=== PATIENT | female | born 2000 | race Caucasian/White ===

== ENCOUNTER 2023-04-30 18:36 | Emergency (ER) | payer BC ==
[~2023-04-30] VITALS: Ht 175.3 cm; Wt 68.0 kg
[2023-04-30 18:44] VITALS: BP_SYST 130
--- NOTE | 2023-04-30 18:51 | NUR ---
Pt brought by self, ambulatory, A&Ox4, pt presents to ER with headache and nausea after hiting her head with a treeranch yesterday, no KO, skin pink and warm, cap refill <3, VSS
[2023-04-30] MEDS ORDERED: ACETAMINOPHEN 500 MG TABLET PO ONE (20:15)
[2023-04-30] MEDS ORDERED: ONDANSETRON 4 MG ODT TAB PO ONE (20:15)
[2023-04-30] MEDS ORDERED: BUTA1CAP43 PO (20:55)
--- NOTE | 2023-04-30 21:50 | NUR ---
MEDICATION GIVEN AT THIS TIME
--- NOTE | 2023-04-30 21:53 | NUR ---
Patient given written and verbal discharge instructions and verbalizes understanding. ER MD discussed with patient the results and treatment provided. Patient in stable condition. ID arm band removed. Rx of given. Patient educated on pain management and to follow up with PMD. Pain Scale 5/10 MIGRAINE. Opportunity for questions provided and answered. Medication side effect fact sheet provided. PATIENT NOTED WALKING WITH STABLE GAIT TO PRIVATE CAR
[2023-04-30 21:55] VITALS: BP_SYST 127
== END 2023-04-30 18:51 | disposition home or self-care (01) ==
LOC: SED 18:36
DX: S00.03XA Contusion of scalp, initial encounter (principal); G43.909 Migraine, unspecified, not intractable, without status migrainosus; I10 Essential (primary) hypertension; Z86.69 Personal history of other diseases of the nervous system and sense organs; Z79.899 Other long term (current) drug therapy; X58.XXXA Exposure to other specified factors, initial encounter; Y93.89 Activity, other specified; Y92.89 Other specified places as the place of occurrence of the external cause; Y99.8 Other external cause status
CPT/HCPCS: 99284; 70450; 76376; 81025; Q0162